=== PATIENT | male | born 1950 | race Hispanic/Latino ===

== ENCOUNTER 2021-10-02 05:55 | Day surgery (SDC) | payer OTHER ==
[~2021-10-02 05:55] MED LIST: ceFAZolin/STERILE WATER 2 GM/20 ML SYRINGE IV NR
[2021-10-02] MEDS ORDERED: LACTATED RINGERS 1,000 ML ONE (07:16)
--- NOTE | 2021-10-02 07:33 | Anesthesia Day of Surgery ---
Anesthesia Day of Surgery - Day of Surgery Patient Examined: Yes Patient H&P Reviewed: Yes Patient is NPO: Yes
--- NOTE | 2021-10-02 07:33 | Anesthesia Consultation ---
Anesthesia Consult and Med Hx Date of service: 10/02/21 - Airway Anesthetic Teeth Evaluation: Good, Bridges (upper left back) ROM Head & Neck: Adequate Mental/Hyoid Distance: Adequate Mallampati Class: Class III Intubation Access Assessment: Possibly Difficult - Pre-Operative Health Status ASA Pre-Surgery Classification: ASA2 Proposed Anesthetic Plan: General - Pulmonary Hx Smoking: No Hx Sleep Apnea: No (SNORES-HIGH RISK ON PRESCREEN) - Cardiovascular System Hx Hypertension: Yes Hx Heart Attack/AMI: No - Central Nervous System Hx Seizures: No Hx Back Pain: No Hx Psychiatric Problems: No - Endocrine Hx Renal Disease: Yes (BPH, bladder stone) Hx End Stage Renal Disease: No Hx Liver Disease: No - Hematic Hx Anemia: No Hx Sickle Cell Disease: No - Other Systems Hx Alcohol Use: Yes (OCC. BEER) Hx Substance Use: No Hx Cancer: No - Additional Comments Anesthesia Medical History Comments: hard of hearing
[2021-10-02] MEDS ORDERED: GABAPENTIN 300 MG CAP ONE (07:39)
[2021-10-02] MEDS ORDERED: LIDOCAINE MPF (2%) 20 MG/1 ML VIAL 5 ML ONE (07:40)
[2021-10-02] MEDS ORDERED: HYDROmorphone 1 MG/1 ML INJ ONE (07:40)
[2021-10-02] MEDS ORDERED: propofoL 200 MG/20 ML VIAL IV ONE (07:40)
[2021-10-02] MEDS ORDERED: GABAPENTIN 300 MG CAP PO NR (07:45)
[2021-10-02] MEDS ORDERED: CELECOXIB 200 MG CAP PO NR (08:00)
[2021-10-02] MEDS ORDERED: GABAPENTIN 500 MG/10 ML ORAL LIQD PO NR (08:00)
[2021-10-02] MEDS ORDERED: LACTATED RINGERS 1,000 ML IV SCH ×2 (08:00→14:00)
[2021-10-02] MEDS ORDERED: MIDAZOLAM 2 MG/2 ML INJ IV NR (08:00)
[2021-10-02] MEDS ORDERED: FAMOTIDINE 20 MG/2 ML INJ IV NR (08:00)
[2021-10-02] MEDS ORDERED: IOHEXOL 300 MG/ML 50ML IV ONE (08:37)
[2021-10-02] MEDS ORDERED: WATER FOR IRRIG STERILE 2000 ML IR ONE (08:37)
[2021-10-02] MEDS ORDERED: ONDANSETRON 4 MG/2 ML INJ ONE (09:01)
[2021-10-02] MEDS ORDERED: KETOROLAC 30 MG/1 ML INJ ONE (09:01)
--- NOTE | 2021-10-02 09:07 | Short Stay Summary ---
Short Stay Documentation Date of service: 10/02/21 - Allergies and Medications Current Medications: Allergies No Known Allergies Allergy (Verified 09/20/21 16:12) Home Medications Medication Instructions Recorded Confirmed Last Taken Type Lisinopril 40 mg PO DAILY 09/20/21 09/20/21 Unknown History amLODIPine [Norvasc] 10 mg PO DAILY 09/20/21 09/20/21 Unknown History Active Medications Cefazolin Sodium (Cefazolin/Sterile Water 2 Gm/20 Ml Syringe) 2 gm IV PREOP NR Stop: 10/02/21 20:00 Celecoxib (Celecoxib 200 Mg Cap) 200 mg PO PREOP NR Stop: 10/02/21 20:00 Famotidine (Famotidine 20 Mg/2 Ml Inj) 20 mg IV PREOP NR Stop: 10/02/21 10:00 Lactated Ringer's (Lactated Ringers) 1,000 mls @ 100 mls/hr IV DIRECT MARY Midazolam HCl (Midazolam 2 Mg/2 Ml Inj) 2 mg IV PREOP NR Stop: 10/02/21 23:59 - Brief post op/procedure progress note Date of procedure: 10/02/21 Pre-op diagnosis: bladder stones Post-op diagnosis: same Procedure: cysto, rpg, holmium laser bladder stones, TUI of prostate Anesthesia: KAM Surgeon: ALY REGAN Estimated blood loss: none Pathology: list (stone with pt) Condition: stable - Hospital course Hospital course: bactrim & theresaco on chart - Disposition Condition at discharge: Stable Disposition: HOME / SELF CARE / HOMELESS Short Stay Discharge Plan Follow up with: [facility] [Primary Care Provider] - 7 Days
--- NOTE | 2021-10-02 09:52 | Operative Report ---
DATE OF SURGERY: 10/02/2021 PREOPERATIVE DIAGNOSIS: Bladder stones. POSTOPERATIVE DIAGNOSIS: Bladder stones. PROCEDURES PERFORMED: Cystoscopy, bilateral retrograde pyelograms, holmium laser lithotripsy of multiple bladder stones, transurethral incision of the prostate. SURGEON: Delon Saldivar MD ANESTHESIA: General. ESTIMATED BLOOD LOSS: Minimal. FLUIDS: Crystalloid. COMPLICATIONS: No complications. INDICATIONS: This 70-year-old gentleman was seen in the office for BPH and erectile dysfunction. He underwent a Rezum vapor therapy of the prostate earlier this year with some improvement of his symptoms. However, these symptoms started to return. Repeat cystoscopy confirmed multiple bladder stones. He presents now for intervention. DESCRIPTION OF PROCEDURE: The patient was taken to the operative suite, placed in a supine position. After adequate general anesthesia, placed in the dorsal lithotomy position, prepped and draped in a sterile fashion. Ojeda-cystourethroscopy was performed with a 22-[place] Storz cystoscope. No urethral abnormalities. Prostate had a high bladder neck. Lateral lobes were minimally obstructing bladder, no tumors were noted, multiple stones aggregate of 2 cm. Bilateral retrograde pyelograms were obtained with an 8-[place] catheter and 8 mL of contrast. No filling defects or obstruction. Next, using a 500 micron holmium laser, a holmium lithotripsy of the stones was performed starting at 4 jacobs going up to 8 with adequate fragmentation of the stones, they were able to be evacuated out. The patient had some small amount of tedious bleeding at the 6 o'clock bladder neck position and it was felt that I could make a small transurethral incision as well as cauterize that area to facilitate flow using an electrode and cutting ____. The patient tolerated the procedure well. Rectal exam was benign. He was extubated and taken to recovery room. He will go home on Bactrim and [place] and follow up in the office. TID: [id number] RECEIPT: [id number] BARBER/BARRY/PAL
[2021-10-02 10:11] VITALS: BP 125/75
--- NOTE | 2021-10-02 17:50 | Post Anesthesia Evaluation ---
- Post Anesthesia Evaluation Patient Participated: Yes Airway Patent: Yes Stable Respiratory Function: Yes Nausea/Vomiting: No Temp > 96.8F: Yes Pain Manageable: Yes Adequeate Hydration: Yes Anesthesia Complications: No Block Receding Appropriately: Not Applicable Patient on Ventilator: No
--- NOTE | 2021-10-04 14:56 | Fluoroscopy Report ---
BILATERAL RETROGRADE UROGRAM 5 [id number] INDICATION: Bladder calculus, intraoperative COMPARISON: None FLUOROSCOPY TIME: 17 seconds FINDINGS: Intraoperative C-arm views show injections of both ureters show no obvious calculi or obstr uctive changes. The lower right ureter at the mid sacral level and just above the bladder shows possi ble areas of narrowing though this may just represent peristalsis on a single image. Multiple pelvic calcifications appear to be vascular. No large bladder calculus is demonstrated. Bladder is not opaci fied however. Signer Name: Eduardo Walters MD Signed: 10/02/2021 12:33 PM Workstation Name: [id number]
== END 2021-10-02 10:30 | disposition home or self-care (01) ==
LOC: OR 05:55
PROVIDERS: ATTEND Urology
DX: N21.0 Calculus in bladder (principal); N40.0 Benign prostatic hyperplasia without lower urinary tract symptoms; I10 Essential (primary) hypertension; Z79.899 Other long term (current) drug therapy; Z98.890 Other specified postprocedural states
CPT/HCPCS: 52317; 74420; C1726; C1758; C1769; J0690; J1170; J1885; J2250; J2405; J2704; J3490; J7120; Q9967